=== PATIENT | female | born 1970 | race Caucasian/White ===

== ENCOUNTER → 2020-10-12 14:45 | Outpatient (CLI) | payer OTHER, SELFPAY ==
--- NOTE | ~2020-10-12 | MM_ITS ---
EXAMINATION: MM screening breezy BI w magda HISTORY: Screening mammogram TECHNIQUE: Craniocaudal and mediolateral oblique 3-D tomosynthesis images were obtained and synthetic 2-D images were generated. CAD analysis was submitted and interpreted. COMPARISON: 09/22/2018 bilateral digital screening mammogram BREAST PARENCHYMAL COMPOSITION: The breasts are heterogeneously dense, which may obscure small masses . FINDINGS: There is no evidence of suspicious mass, calcification, or architectural distortion to sugg est malignancy in either breast. There has been no suspicious interval change. IMPRESSION: 1. No mammographic evidence of malignancy. 2. Recommend routine screening mammography in one year. BI-RADS Category 1: Negative Reviewed, dictated and finalized at location A.
== END ==
PROVIDERS: PCP Internal Medicine; Visit Provider Student in an Organized Health Care Education/Training Program
DX: Z12.31 Encounter for screening mammogram for malignant neoplasm of breast (principal)
CPT/HCPCS: 77063; 77067

== ENCOUNTER → 2021-12-18 11:30 | Outpatient (CLI) | payer OTHER, SELFPAY ==
--- NOTE | ~2021-12-18 | MM_ITS ---
EXAMINATION: MM screening breezy BI w magda HISTORY: Screening TECHNIQUE: Craniocaudal and mediolateral oblique 3-D tomosynthesis images were obtained and synthetic 2-D images were generated. CAD analysis was submitted and interpreted. COMPARISON: Comparison to multiple prior studies sequentially, with oldest reviewed study dated 11/2018. BREAST PARENCHYMAL COMPOSITION: The breasts are heterogeneously dense, which may obscure small masses . FINDINGS: There is no evidence of suspicious mass, calcification, or architectural distortion to sugg est malignancy in either breast. There has been no suspicious interval change. IMPRESSION: 1. No mammographic evidence of malignancy. 2. Recommend routine screening mammography in one year. BI-RADS Category 1: Negative Reviewed, dictated and finalized at location A.
== END ==
PROVIDERS: PCP Internal Medicine; Visit Provider Student in an Organized Health Care Education/Training Program
DX: Z12.31 Encounter for screening mammogram for malignant neoplasm of breast (principal)
CPT/HCPCS: 77063; 77067

== ENCOUNTER 2022-03-05 15:03 | Outpatient (CLI) | payer OTHER, SELFPAY ==
--- NOTE | ~2022-03-05 | US_ITS ---
EXAMINATION: US pelvic complete w TV DATE: 03/05/2022 16:59 INDICATION: Abnormal uterine and vaginal bleeding, unspecified. TECHNIQUE: Multiple transabdominal and transvaginal sonographic images of the pelvis were obtained. COMPARISON: None. FINDINGS: TRANSABDOMINAL ULTRASOUND: The uterus measures 8.4 x 6.3 x 5.5 cm. There is no free fluid in the pelvis. TRANSVAGINAL ULTRASOUND: The endometrial complex measures 4 mm in thickness. There are nabothian cysts in the cervix. The righ t ovary measures 2.7 x 1.6 x 1.3 cm. The left ovary measures 2.6 x 1.6 x 1.9 cm. There is normal vasc ular flow in the ovaries. IMPRESSION: 1. Normal pelvis. Reviewed, dictated and finalized at location B. IMPRESSION: 1. Normal pelvis.
== END 2022-03-05 15:04 | disposition home or self-care (01) ==
LOC: ANHIMG 15:05
PROVIDERS: PCP Internal Medicine; Visit Provider Student in an Organized Health Care Education/Training Program
DX: N93.9 Abnormal uterine and vaginal bleeding, unspecified (principal)
CPT/HCPCS: 76830; 76856

== ENCOUNTER 2022-05-03 00:31 | Day surgery (SDC) | payer OTHER, SELFPAY ==
[2022-04-22 13:40] VITALS: BMI 33.6
--- NOTE | 2022-04-22 13:57 | PC.NURSE ---
Report to the Outpatient Waiting Room, entrance under the green pavilion located off [facility], at 0930 on 05-03-22. Planned Procedure Time: 1130. Time changes happen often and if your time is changed the preop area will call you the afternoon before. - You and your visitor will be asked to self-screen and do not enter if you have any COVID symptoms. - Only one visitor is requested with a max of two and NO children visitors are allowed at this time. - The patient visitor may be requested to leave or wait in car when not with patient due to distancing restrictions. - A mask is optional within the hospital. Patients may have clear liquids (water, carbonated beverages, clear teas, apple juice) until 3 hours prior to surgery with a maximum of 20 ounces. 0830 - No food from midnight until time of surgery - Infants may have breast milk until 4 hours before surgery, infant formula 6 hours prior to surgery. - Children will be allowed to drink immediately following surgery. If applicable, please bring a bottle or sippy cup to assist with drinking. Juice, water, soda, and popsicles are readily available. For infants on formula, please bring formula the day of surgery. Pacifiers are allowed. Take the following medications with a SIP of water the morning of surgery: None Medications to discontinue per physician: N/A Please no make-up, nail frisian, hairspray, perfume, deodorant, or body powder the day of surgery. No jewelry (including any body piercings) or valuables the day of surgery, leave them at home. Please take a shower or bath the night before, or the morning of, surgery with an antibacterial soap. Wear comfortable, loose fitting clothing. Children are encouraged to wear pajamas. - Jewelry must be removed prior to entering the operating room. Rings and piercings that are not removed may be cut off. - The hospital will not accept responsibility for valuables. - Please leave all valuables, including medications, at home the day of surgery. If you are going home after surgery, a licensed dedicated regional driver must drive you home. - NO public transportation without another adult if you receive anesthesia. - We recommend that an adult stay with you for 24 hours following discharge. - We also recommend that you do not drive, make important decision, drink alcoholic beverages, or take any drugs that were not prescribed by your health care provider for at least 24 hours after your discharge time. For Pediatric surgeries, we recommend two adults accompany the child home. Follow any additional instructions given to you from your surgeon. If you or anyone in your household have experienced Covid symptoms in the past week, please notify your surgeon or the nurse liaison at the phone number below for possible testing. Telephone instructions given to Butch Collazo and asked if any additional questions and then verbalized understanding. Patient advised to call surgeon office or pre surgery nurse liaison [phone] if any additional questions.
--- NOTE | 2022-05-02 14:20 | PM.IMHP ---
H&P: HPI History of Present Illness Date/Time: 05/02/22 14:20 Chief Complaint: Menorrhagia Narrative: Patient is a 52 year old perimenopausal woman who presented to gynecology office with complaints of menorrhagia.?Patient states that menstrual cycles have become significantly heavier over time. Patient denies pelvic pain. She has tried progesterone only pills in the past as well as attempted IUD insertion, however, experienced expulsion. After lengthy discussion, patient declines hormonal regulation and would like to proceed with an endometrial ablation as next step in management. In general, patient doing well today without complaints. Review of Systems Review of Systems: All systems reviewed & are unremarkable except as noted in HPI and below Constitutional: Constitutional: Reports as per HPI and Reports no additional constitutional complaints Eyes: Eyes: Reports as per HPI and Reports no additional eye complaints ENT: Reports system reviewed and no additional complaints, except as documented and Reports as per HPI Cardiovascular: Cardiovascular: Reports as per HPI and Reports no additional cardiovascular complaints Respiratory: Respiratory: Reports as per HPI and Reports no additional respiratory complaints Gastrointestinal: Gastrointestinal: Reports as per HPI and Reports no additional gastrointestinal complaints Genitourinary: Genitourinary: Reports no additional female genitourinary complaints and Reports as per HPI Musculoskeletal: Musculoskeletal: Reports no additional musculoskeletal complaints and Reports as per HPI Integumentary/Breasts: Skin/Breast: Reports system reviewed and no additional complaints, except as docu and Reports as per HPI Neurologic: Reports system reviewed and no additional complaints, except as documented and Reports as per HPI Psychiatric: Psychiatric: Reports no additional psychiatric complaints and Reports as per HPI Endocrine: Endocrine: Reports no additional endocrine complaints and Reports as per HPI Hematologic/Lymphatic: Hematologic/Lymphatic: Reports no additional hematologic/lymphatic complaints and Reports as per HPI Allergic/Immunologic: Allergic/Immunologic: Reports no additional allergic/immunologic complaints and Reports as per HPI PMFSH Past Medical History Medical History Acute vulvitis Body mass index [BMI]40.0-44.9, adult (03/04/17) Diabetes Encounter for gynecological examination (general) (routine) with abnormal findings Encounter for screening for malignant neoplasm of cervix Heartburn High blood pressure determined by examination High cholesterol Numbness Painful joint Screening mammogram, encounter for Unspecified hemorrhoids Weakness Family History Family History Father Diabetes mellitus Family history of elevated blood lipids Mother Family history of elevated blood lipids Family history of chronic obstructive pulmonary disease, Onset Age: 72 Family history of malignant neoplasm of urinary bladder Sibling Family history of malignant neoplasm of esophagus, Onset Age: 53 Social History Social History Smoking status: Never smoker Second hand tobacco smoke exposure: No Alcohol intake: never Substance use: never Substance use type: does not use Spiritual care concerns: No Meds Home Medications and Allergies Home Medications Medication Instructions Recorded Confirmed Type No Home Medications 04/22/22 04/22/22 History Allergies Allergy/AdvReac Type Severity Reaction Status Date / Time No Known Allergies Allergy Verified 04/22/22 13:38 Exam Const: General: cooperative, healthy appearing and comfortable HENMT: Head: normal to inspection Ears: hearing grossly normal bilaterally Eyes: General: appearance normal, both eyes and all related struct
[2022-05-03] MEDS: ACETAMINOPHEN 500 MG TABLET 1000 MG PO (09:50)
[2022-05-03] MEDS: LACTATED RINGERS 1,000 ML 30 ML IV CONT ×2 (09:50→11:38)
[2022-05-03 10:07] VITALS: BP 120/63; PULSE 77; RESP 18; TEMP 36.6; O2SAT 99
--- NOTE | 2022-05-03 10:12 | P.PNAN_ITS ---
Anes - Initial Pre Proc Eval Procedure: Operation Date: 05/03/22 11:30 Proposed Procedures p Hysteroscopy Dilation and Curettage Endometrial Ablation with Possible Myosure - Mirtha Alvarado MD Date/Time: 05/03/22 10:12 Surgeon: Mirtha Alvarado MD Pre Op Diagnosis: vaginal bleeding, menorrhagia Patient Data Age: 52 Gender: F Height: 1.6 m Weight: 88.05 kg Last Vital Signs Temp 97.8 F 05/03/22 10:07 Pulse 77 05/03/22 10:07 Resp 18 05/03/22 10:07 BP 120/63 05/03/22 10:07 Pulse Ox 99 05/03/22 10:07 O2 Del Method Room Air 05/03/22 10:07 Allergies Allergy/AdvReac Type Severity Reaction Status Date / Time No Known Allergies Allergy Verified 05/03/22 10:03 Home Medications Medication Instructions Recorded Confirmed Type No Home Medications 04/22/22 04/22/22 History Patient hx anesthesia problems: none Family hx anesthesia problems: none Results Review: All pre-operative results and documents have been reviewed as part of the pre- operative evaluation. [facility] Past Medical History Medical History Acute vulvitis Body mass index [BMI]40.0-44.9, adult (03/04/17) Diabetes Encounter for gynecological examination (general) (routine) with abnormal fi ndings Encounter for screening for malignant neoplasm of cervix Heartburn High blood pressure determined by examination High cholesterol Numbness Painful joint Screening mammogram, encounter for Unspecified hemorrhoids Weakness Family History Family History Father Diabetes mellitus Family history of elevated blood lipids Mother Family history of elevated blood lipids Family history of chronic obstructive pulmonary disease, Onset Age: 72 Family history of malignant neoplasm of urinary bladder Sibling Family history of malignant neoplasm of esophagus, Onset Age: 53 Social History Social History Smoking status: Never smoker Second hand tobacco smoke exposure: No Alcohol intake: never Substance use: never Substance use type: does not use Living arrangements: with family Spiritual care concerns: No Anes - Eval Final PreProcedure Day of Procedure 05/03/22 10:12 Patient weight: obese Heart: regular rate and rhythm Lungs: clear to auscultation Airway: Mallampati scale class II Neurological: alert and oriented Last oral intake: >/= 8 hours ASA classification: III Emergent: no Anesthetic plan: proceed Anesthesia type and monitoring: general GIVS and standard monitoring Results Review: All pre-operative results and documents have been reviewed as part of the pre-operative evaluation. Informed Consent: The patient's anesthetic plan and its attendant risks and benefits were discussed with the patient/family/POA. Questions were solicited and answers provided to the satisfaction of the patient/family/POA.
--- NOTE | 2022-05-03 10:32 | WPDHPUPDATE1 ---
History and Physical Update Update Date/Time: 05/03/22 10:32 History and Physical has been reviewed, including an updated exam of the patient. There are NO changes in the patient's condition. Risks, benefits, and alternatives have been discussed and questions answered. Patient agrees to proceed with procedure.
[2022-05-03] MEDS: LIDOCAINE HCL 1% PF 30 ML VIAL INFILTRATE (11:20)
--- NOTE | 2022-05-03 11:36 | P.OP_ITS ---
Procedure Note - Detailed Date of Procedure 05/03/22 Pre-op Diagnosis Abnormal uterine bleeding, menorrhagia Post-op Diagnosis Same Procedure Performed Hysteroscopy, dilation and curettage, endometrial ablation with Shayla Surgeon Mirtha Alvarado MD Anesthesia MAC Findings Normal appearing endometrial cavity, bilateral tubal ostia seen Description of Procedure The patient was taken to the operating room where she self-transferred to the operating room table. She was placed in dorsal supine position. Anesthesia was administered and found to be adequate. The patient was repositioned in dorsal lithotomy position with the use of Dm stirrups. She was prepped and draped in usual sterile fashion. A red rubber catheter was used to drain the bladder of 50 cc of clear urine. A bivalve speculum was inserted into the vagina. The cervix was well visualized. The anterior lip of the cervix was grasped with a single- tooth tenaculum. A paracervical block was performed with 1% plain lidocaine. 5 cc of lidocaine was administered on either side for a total of 10 cc. The cervix was serially dilated to accommodate a hysteroscope. The hysteroscope was introduced into the endometrial cavity. A general survey was performed.? Endometrial cavity was well visualized and appeared within normal limits. Bilateral tubal ostia were visualized. A few pictures were taken. The hysteroscope was removed. A medium-size rigid curette was used to perform a curettage. All quadrants of the endometrial cavity were explored. A minimal amount of tissue was obtained and prepared to be sent to pathology for analysis.?The Shayla endometrial ablation device was then opened on the sterile field. The appropriate settings were input on the hand-held device and the array was introduced into the endometrial cavity and deployed. The cervical balloon was insufflated. An error code appeared on the [employer] console indicating a handpiece defect error. The cervical balloon was desufflated, array was collapsed, and the hand-held device was removed. A new handpiece was opened. Similarly, the appropriate settings were input on the hand-held device and the array was introduced into the endometrial cavity and deployed. The cervical balloon was insufflated. There was no error code. An integrity check was completed and passed by the Shayla console. After the integrity check was passed successfully, the ablation procedure started automatically and ran for the preset time of 120 seconds. After completion of the ablation procedure, the array was collapsed and the cervical balloon was desufflated. The device was removed.? The tenaculum was removed from the anterior lip of the cervix. No bleeding was noted. The vagina was cleansed and dried and the speculum was removed. The patient was cleansed and dried and taken out of the dorsal lithotomy position. She was awakened from anesthesia without difficulty and transferred to the recovery room in stable condition.? The patient tolerated the procedure well.? All sponge, lap, and instrument counts were correct at the end of the procedure. Estimated Blood Loss 2 IV Fluids 200 Urine Output 50 Drains No Packing No Pathology Yes (endometrial curettings) Complications No immediate complications (however, error code on Shayla device required repl acement of handpiece prior to ablation during procedure) Condition Stable Disposition Same day [facility] Billing Surgery - Charge Forward: Surgery Billing
[2022-05-03 11:40] VITALS: BP 130/65; PULSE 79; RESP 14; O2SAT 97
[2022-05-03 12:10] VITALS: BP 139/72; PULSE 64; RESP 12
== END 2022-05-03 12:31 | disposition home or self-care (01) ==
PROVIDERS: PCP Internal Medicine; Visit Provider Student in an Organized Health Care Education/Training Program
PROC: 0U5B8ZZ Destruction of Endometrium, Via Natural or Artificial Opening Endoscopic (ICD-10-PCS; CPT 58563; principal; 2022-05-03 11:30)
DX: N92.0 Excessive and frequent menstruation with regular cycle (principal); E66.9 Obesity, unspecified; Z68.34 Body mass index [BMI] 34.0-34.9, adult
CPT/HCPCS: 58563; 88305; A9270; J2250; J2405; J2704; J3010; J7030; J7120

== ENCOUNTER 2022-06-11 10:54 | Day surgery (SDC) | payer OTHER, SELFPAY ==
[2022-04-08 08:18] VITALS: BMI 34.8
[2022-05-29 13:23] VITALS: BMI 33.3
--- NOTE | 2022-06-11 07:52 | P.PNAN_ITS ---
Anes - Initial Pre Proc Eval Procedure: Operation Date: 06/11/22 13:30 Proposed Procedures p Screening Colonoscopy - Jose Angel De La Paz MD Date/Time: 06/11/22 07:52 Surgeon: Jose Angel De La Paz MD Pre Op Diagnosis: Neoplasm Screening Patient Data Age: 52 Gender: F Height: 1.6 m Weight: 85.5 kg Allergies Allergy/AdvReac Type Severity Reaction Status Date / Time No Known Allergies Allergy Verified 06/11/22 12:28 Home Medications Medication Instructions Recorded Confirmed Type No Home Medications 04/22/22 06/11/22 History Patient hx anesthesia problems: none Family hx anesthesia problems: none Results Review: All pre-operative results and documents have been reviewed as part of the pre- operative evaluation. [facility] Past Medical History Medical History (Updated 06/11/22 @ 12:57 by Jose Angel De La Paz MD) Acute vulvitis Body mass index [BMI]40.0-44.9, adult (03/04/17) Colon cancer screening Diabetes Encounter for gynecological examination (general) (routine) with abnormal findings Encounter for screening for malignant neoplasm of cervix Heartburn High blood pressure determined by examination High cholesterol Numbness Painful joint Screening mammogram, encounter for Unspecified hemorrhoids Weakness Family History Family History Father Diabetes mellitus Family history of elevated blood lipids Mother Family history of elevated blood lipids Family history of chronic obstructive pulmonary disease, Onset Age: 72 Family history of malignant neoplasm of urinary bladder Sibling Family history of malignant neoplasm of esophagus, Onset Age: 53 Social History Social History Smoking status: Never smoker Second hand tobacco smoke exposure: No Alcohol intake: never Substance use: never Substance use type: does not use Living arrangements: with family Spiritual care concerns: No Anes - Eval Final PreProcedure Day of Procedure 06/11/22 07:52 Patient weight: obese Heart: regular rate and rhythm Lungs: clear to auscultation Airway: Mallampati scale class II Neurological: alert and oriented Last oral intake: >/= 8 hours ASA classification: II Emergent: no Anesthetic plan: proceed Anesthesia type and monitoring: general GIVS and standard monitoring Results Review: All pre-operative results and documents have been reviewed as part of the pre- operative evaluation. Informed Consent: The patient's anesthetic plan and its attendant risks and benefits were discussed with the patient/family/POA. Questions were solicited and answers provided to the satisfaction of the patient/family/POA.
[2022-06-11 12:05] VITALS: BP 124/73; PULSE 76; RESP 20; TEMP 36.7; O2SAT 99
[2022-06-11] MEDS: LACTATED RINGERS 1,000 ML 150 ML IV CONT (12:35)
--- NOTE | 2022-06-11 12:56 | PM.HPGS ---
History of Present Illness History of Present Illness Consent: Risks, benefits, and alternatives have been discussed and questions answered. Patient agrees to proceed with procedure. Chief complaint: Neoplasm Screening Narrative: Dior Collazo is a 52 year old female here for first screening colonoscopy Review of Systems Constitutional: Constitutional: Denies headache(s) and Denies weakness Eyes: Eyes: Denies blurry vision ENT: Reports Normal hearing present, Denies headache(s) and Denies neck pain Cardiovascular: Cardiovascular: Denies chest pain and Denies dyspnea Respiratory: Respiratory: Denies dyspnea Gastrointestinal: Gastrointestinal: Reports no additional gastrointestinal complaints Genitourinary: Genitourinary: Denies dysuria Musculoskeletal: Musculoskeletal: Denies neck pain Integumentary/Breasts: Skin/Breast: Denies dry skin Neurologic: Reports Normal hearing present, Denies headache(s) and Denies weakness Psychiatric: Psychiatric: Denies anxiety Endocrine: Endocrine: Denies change in body appearance Hematologic/Lymphatic: Hematologic/Lymphatic: Denies easy bleeding Allergic/Immunologic: Allergic/Immunologic: Denies urticaria PMFSH Past Medical History Medical History (Updated 06/11/22 @ 12:57 by Jose Angel De La Paz MD) Acute vulvitis Body mass index [BMI]40.0-44.9, adult (03/04/17) Colon cancer screening Diabetes Encounter for gynecological examination (general) (routine) with abnormal findings Encounter for screening for malignant neoplasm of cervix Heartburn High blood pressure determined by examination High cholesterol Numbness Painful joint Screening mammogram, encounter for Unspecified hemorrhoids Weakness Family History Family History Father Diabetes mellitus Family history of elevated blood lipids Mother Family history of elevated blood lipids Family history of chronic obstructive pulmonary disease, Onset Age: 72 Family history of malignant neoplasm of urinary bladder Sibling Family history of malignant neoplasm of esophagus, Onset Age: 53 Social History Social History Smoking status: Never smoker Second hand tobacco smoke exposure: No Alcohol intake: never Substance use: never Substance use type: does not use Living arrangements: with family Spiritual care concerns: No Meds Home Medications and Allergies Home Medications Medication Instructions Recorded Confirmed Type No Home Medications 04/22/22 06/11/22 History Allergies Allergy/AdvReac Type Severity Reaction Status Date / Time No Known Allergies Allergy Verified 06/11/22 12:28 Vital Signs Vital Signs - 24 hr 06/11/22 12:05 Temperature 98.1 F Pulse Rate 76 Respiratory Rate 20 Blood Pressure 124/73 Pulse Oximetry 99 Oxygen Delivery Room Air Exam Const: General: comfortable and no acute distress HENMT: Face/Nose/Sinus: Normal nares present Eyes: General: appearance normal, both eyes and all related structures Neck: Neck: no JVD Resp: Auscultation: clear to auscultation bilaterally Cardio: Rate: regular rate Rhythm: regular rhythm GI: Inspection: non-distended GI Palp: Yes Soft to palpation Skin: General skin exam: normal color Neuro: General: gait normal Speech: normal speech Extrem: General: normal to inspection Psych: Mental Status: mental status grossly normal Assessment and Plan Assessment and plan (1) Colon cancer screening: Code(s): Z12.11 - Encounter for screening for malignant neoplasm of colon Status: Acute Assessment and Plan: colonoscopy
[2022-06-11 13:22] VITALS: BP 117/68; PULSE 76; RESP 16; O2SAT 100
[2022-06-11 13:32] VITALS: BP 123/70; PULSE 74; RESP 16; O2SAT 100
[2022-06-11 13:42] VITALS: BP 124/76; PULSE 70; RESP 20; O2SAT 100
--- NOTE | 2022-06-11 14:24 | WPDANESPN ---
Anes - Prog Note Post-Op Date/Time: 06/11/22 14:24 Cardiovascular status: normal Respiratory status: normal Airway patency: baseline Mental status: baseline Post-Op hydration status: normal Vital Signs: Last Vital Signs Temp 36.7 C 06/11/22 12:05 Pulse 70 06/11/22 13:42 Resp 20 06/11/22 13:42 BP 124/76 06/11/22 13:42 Pulse Ox 100 06/11/22 13:42 O2 Del Method Room Air 06/11/22 13:42 Pain Score (VAS): 0 I/O: Intake & Output 06/10/22 06/11/22 06/11/22 23:59 07:59 15:59 Intake Total 300 Balance 300 Post-procedural complaints: none Patient Feedback: Patient satisfied with anesthetic care. Other Findings: Patient vital signs back to baseline. Patient denies nausea and vomiting. Patient's pain under control. Patient OK for discharge.
== END 2022-06-11 14:15 | disposition home or self-care (01) ==
PROVIDERS: PCP Internal Medicine; Visit Provider Internal Medicine Gastroenterology
PROC: 0DJD8ZZ Inspection of Lower Intestinal Tract, Via Natural or Artificial Opening Endoscopic (ICD-10-PCS; CPT 45378; principal; 2022-06-11 13:30)
DX: Z12.11 Encounter for screening for malignant neoplasm of colon (principal)
CPT/HCPCS: 45378

== ENCOUNTER 2022-10-03 10:03 | Outpatient (CLI) | payer OTHER, SELFPAY ==
--- NOTE | 2022-10-03 11:00 | NEURO_ITS ---
Impression: # Complains of numbness of hands. # Left moderate and right mild Carpal Tunnel Syndrome. # No ulnar neuropathy. # Normal needle/EMG exam. Nerve Conduction Studies Anti Sensory Summary Table Stim Site NR Peak (ms) P-T Amp (?V) Site1 Site2 Delta-P (ms) Dist (cm) Kalia (m/s) Left Median Anti Sensory (2-3nd Digit) Wrist 4.5 15.7 Wrist 2-3nd Digit 4.5 14.0 31 Wrist 4.7 21.4 Wrist 2-3nd Digit 4.5 14.0 31 Right Median Anti Sensory (2-3nd Digit) Wrist 4.8 19.0 Wrist 2-3nd Digit 4.8 14.0 29 Wrist 4.9 22.7 Wrist 2-3nd Digit 4.8 14.0 29 Left Radial Anti Sensory (Base 1st Digit) Wrist 1.6 21.0 Wrist Base 1st Digit 1.6 0.0 Right Radial Anti Sensory (Base 1st Digit) Wrist 1.8 35.8 Wrist Base 1st Digit 1.8 0.0 Left Ulnar Anti Sensory (5th Digit) Wrist 1.8 53.6 Wrist 5th Digit 1.8 14.0 78 Right Ulnar Anti Sensory (5th Digit) Wrist 2.1 76.7 Wrist 5th Digit 2.1 14.0 67 Motor Summary Table Stim Site NR Onset (ms) O-P Amp (mV) Site1 Site2 Delta-0 (ms) Dist (cm) Kalia (m/s) Left Median Motor (Abd Poll Brev) Wrist 4.4 3.3 Elbow Wrist 4.4 26.0 59 Elbow 8.8 2.7 Right Median Motor (Abd Poll Brev) Wrist 3.4 6.1 Elbow Wrist 4.9 30.0 61 Elbow 8.3 5.7 Left Ulnar Motor (Abd Dig Minimi) Wrist 2.1 7.9 A Elbow Wrist 4.9 28.0 57 A Elbow 7.0 4.9 Right Ulnar Motor (Abd Dig Minimi) Wrist 2.3 8.1 A Elbow Wrist 4.4 28.0 64 A Elbow 6.7 8.1 F Wave Studies NR F-Lat (ms) L-R F-Lat (ms) Left Median (Mrkrs) (Abd Poll Brev) 26.98 1.89 Right Median (Mrkrs) (Abd Poll Brev) 25.09 1.89 Left Ulnar (Mrkrs) (Abd Dig Min) 26.27 0.51 Right Ulnar (Mrkrs) (Abd Dig Min) 25.76 0.51 EMG Side Muscle Nerve Root Ins Act Fibs Amp Dur Recrt Comment Right 1stDorInt Ulnar C8-T1 Nml Nml Nml Nml Nml Right Ext Indicis Radial (Post Int) C7-8 Nml Nml Nml Nml Nml Right Ext Digitorum Radial (Post Int) C7-8 Nml Nml Nml Nml Nml Right BrachioRad Radial C5-6 Nml Nml Nml Nml Nml Right PronatorTeres Median C6-7 Nml Nml Nml Nml Nml Right Abd Poll Brev Median C8-T1 Nml Nml Nml Nml Nml Left 1stDorInt Ulnar C8-T1 Nml Nml Nml Nml Nml Left Ext Indicis Radial (Post Int) C7-8 Nml Nml Nml Nml Nml Left Ext Digitorum Radial (Post Int) C7-8 Nml Nml Nml Nml Nml Left BrachioRad Radial C5-6 Nml Nml Nml Nml Nml Left PronatorTeres Median C6-7 Nml Nml Nml Nml Nml Left Abd Poll Brev Median C8-T1 Nml Nml Nml Nml Nml Right ABD Dig Min Ulnar C8-T1 Nml Nml Nml Nml Nml Left ABD Dig Min Ulnar C8-T1 Nml Nml Nml Nml Nml MTDD
== END 2022-10-03 10:04 | disposition home or self-care (01) ==
LOC: ANHNEURO 10:04
PROVIDERS: PCP Family Medicine; Visit Provider Plastic Surgery
DX: R20.2 Paresthesia of skin (principal); G56.03 Carpal tunnel syndrome, bilateral upper limbs
CPT/HCPCS: 95886; 95911

== ENCOUNTER → 2022-11-21 11:26 | Outpatient (CLI) | payer OTHER, SELFPAY ==
--- NOTE | ~2022-11-21 | US_ITS ---
Thyroid ultrasound. Clinical History: Nontoxic goiter Findings: Real-time sonography of the thyroid gland was performed. The right lobe measures 5.3 x 1.4 x 1.8 cm. The left lobe measures 4.4 x 1.2 x 1.4 cm. The isthmus is 2 mm in AP diameter. Parenchyma is homogeneous. No thyroid nodule identified. Impression: No significant abnormality seen. Reviewed, dictated and finalized at location . Impression: No significant abnormality seen.
== END ==
PROVIDERS: PCP Registered Nurse; Visit Provider Registered Nurse
DX: E04.9 Nontoxic goiter, unspecified (principal)
CPT/HCPCS: 76536

== ENCOUNTER 2022-12-10 07:39 | Day surgery (SDC) | payer OTHER, SELFPAY ==
[2022-10-15 10:50] VITALS: BMI 31.9
[2022-11-26 10:22] VITALS: BMI 38.2
[2022-12-10 08:06] VITALS: BP 134/85; PULSE 82; RESP 16; TEMP 36; O2SAT 99; BMI 37.6
--- NOTE | 2022-12-10 08:17 | WPDANESEPPF ---
Anes - Initial Pre Proc Eval Procedure: Operation Date: 12/10/22 09:45 Proposed Procedures p Bilateral Open Carpal Tunnel Release - Isiah Huerta MD s Trigger Thumb Injection-Left - Isiah Huerta MD Date/Time: 12/10/22 08:17 Surgeon: Isiah Huerta MD Pre Op Diagnosis: Biateral Carpal Tunnel Syndrome, LT Trigger Thumb Patient Data Age: 52 Gender: F Height: 1.6 m Weight: 96.4 kg Last Vital Signs Temp 36.0 C L 12/10/22 08:06 Pulse 82 12/10/22 08:06 Resp 16 12/10/22 08:06 BP 134/85 12/10/22 08:06 Pulse Ox 99 12/10/22 08:06 O2 Del Method Room Air 12/10/22 08:06 Allergies Allergy/AdvReac Type Severity Reaction Status Date / Time No Known Allergies Allergy Verified 12/10/22 07:55 Home Medications Medication Instructions Recorded Confirmed Type No Home Medications 04/22/22 12/10/22 History Patient hx anesthesia problems: none Family hx anesthesia problems: none Results Review: All pre-operative results and documents have been reviewed as part of the pre-operative evaluation. [facility] Past Medical History Medical History Acute vulvitis Body mass index [BMI]40.0-44.9, adult (03/04/17) Colon cancer screening Diabetes Encounter for gynecological examination (general) (routine) with abnormal findings Encounter for screening for malignant neoplasm of cervix Heartburn High blood pressure determined by examination High cholesterol Numbness Painful joint Screening mammogram, encounter for Unspecified hemorrhoids Weakness Family History Family History Father Diabetes mellitus Family history of elevated blood lipids Mother Family history of elevated blood lipids Family history of chronic obstructive pulmonary disease, Onset Age: 72 Family history of malignant neoplasm of urinary bladder Sibling Family history of malignant neoplasm of esophagus, Onset Age: 53 Social History Social History Smoking status: Never smoker Second hand tobacco smoke exposure: No Alcohol intake: never Substance use: never Substance use type: does not use Lack of Transportation: No Lack of Food: Never True Current Housing: I Have Housing Concerned About Future Housing: No Difficulty Paying Gas/Electric Bills: No Difficulty Paying for Meds: No Currently Unemployed: No Education: Bachelor's Degree Living arrangements: with family Occupation/Education: occupation Gender identity (if verbalized by the patient): Female Sexual Orientation (if Verbalized by the Patient): Straight or Heterosexual Spiritual care concerns: No Anes - Eval Final PreProcedure Day of Procedure 12/10/22 08:17 Patient weight: obese Heart: regular rate and rhythm Lungs: clear to auscultation Airway: Mallampati scale class II Neurological: alert and oriented Last oral intake: >/= 8 hours ASA classification: II Emergent: no Anesthetic plan: proceed Anesthesia type and monitoring: general GIVS and standard monitoring Results Review: All pre-operative results and documents have been reviewed as part of the pre-operative evaluation. Informed Consent: The patient's anesthetic plan and its attendant risks and benefits were discussed with the patient/family/POA. Questions were solicited and answers provided to the satisfaction of the patient/family/POA.
[2022-12-10] MEDS: LACTATED RINGERS 1,000 ML 30 ML IV CONT (08:25)
--- NOTE | 2022-12-10 08:33 | P.HP_ITS ---
H&P: HPI History of Present Illness Date/Time: 12/10/22 08:33 [facility] Past Medical History Medical History Acute vulvitis Body mass index [BMI]40.0-44.9, adult (03/04/17) Colon cancer screening Diabetes Encounter for gynecological examination (general) (routine) with abnormal findings Encounter for screening for malignant neoplasm of cervix Heartburn High blood pressure determined by examination High cholesterol Numbness Painful joint Screening mammogram, encounter for Unspecified hemorrhoids Weakness Family History Family History Father Diabetes mellitus Family history of elevated blood lipids Mother Family history of elevated blood lipids Family history of chronic obstructive pulmonary disease, Onset Age: 72 Family history of malignant neoplasm of urinary bladder Sibling Family history of malignant neoplasm of esophagus, Onset Age: 53 Social History Social History Smoking status: Never smoker Second hand tobacco smoke exposure: No Alcohol intake: never Substance use: never Substance use type: does not use Lack of Transportation: No Lack of Food: Never True Current Housing: I Have Housing Concerned About Future Housing: No Difficulty Paying Gas/Electric Bills: No Difficulty Paying for Meds: No Currently Unemployed: No Education: Bachelor's Degree Living arrangements: with family Occupation/Education: occupation Gender identity (if verbalized by the patient): Female Sexual Orientation (if Verbalized by the Patient): Straight or Heterosexual Spiritual care concerns: No Meds Home Medications and Allergies Home Medications Medication Instructions Recorded Confirmed Type No Home Medications 04/22/22 12/10/22 History Allergies Allergy/AdvReac Type Severity Reaction Status Date / Time No Known Allergies Allergy Verified 12/10/22 07:55 Vital Signs Vital Signs - 24 hr 12/10/22 08:06 Temperature 96.8 F L Pulse Rate 82 Respiratory Rate 16 Blood Pressure 134/85 Pulse Oximetry 99 Oxygen Delivery Room Air
--- NOTE | 2022-12-10 08:34 | WPDHPUPDATE1 ---
History and Physical Update Update Date/Time: 12/10/22 08:34 History and Physical has been reviewed, including an updated exam of the patient. There are NO changes in the patient's condition. Risks, benefits, and alternatives have been discussed and questions answered. Patient agrees to proceed with procedure.
[2022-12-10] MEDS: LIDO 1%/EPINEPHRINE 1:100,000 50 ML VIAL 12 ML INFILTRATE (10:17)
[2022-12-10 10:19] VITALS: BP 142/65; PULSE 84; RESP 18; O2SAT 93
--- NOTE | 2022-12-10 10:25 | W.PM.PROC2 ---
Procedure Note - Detailed Date of Procedure 12/10/22 Pre-op Diagnosis Biateral Carpal Tunnel Syndrome, LT Trigger Thumb Post-op Diagnosis Same Procedure Performed Bilateral open carpal tunnel release. Injection of 6 mg betamethasone to the left 1st A1 mauricio. Surgeon Isiah Huerta MD Anesthesia MAC Description of Procedure The patient was greeted in the holding area and marked both carpal tunnels for surgery. Also the left 1st A1 mauricio for injection. She was then taken to the operating room where she was placed supine on the operating table. She was given IV sedation and both upper extremities were prepped and draped in the usual fashion. She had a tourniquet applied on the right forearm below the antecubital IV. She had an arm tourniquet on the left. The 2 sites were anesthetized with 1% with lidocaine with epinephrine. Dwell time on the right was approximately 18 minute. The surgery was begun on the left. The extremity was exsanguinated and the tourniquet inflated to 250 mmHg. The incision was made as marked. The palmar aponeurosis and transverse retinaculum were incised with a 15. Blade. Under 3 point retraction the ligament was divided distally and proximally for complete release. No unusual anatomy was noted. The wound was closed with interrupted 5 0 nylon sutures. The 6 mg of betamethasone were injected at the left 1st A1 mauricio . The usual bandages were applied and the tourniquet was released. On the right side no tourniquet was utilized the incision was made in the palm and blunt dissection revealed the palmar aponeurosis. Several bleeding sites were cauterized on setting of 20. The incision was made through the palmar aponeurosis and into the carpal canal. Under 3 point retraction transverse retinaculum was divided distally and proximally for complete release. There was no unusual anatomy noted. The wound was closed with interrupted 5 0 nylon suture. The usual bandage was applied. The patient was discharged from the operating room in stable condition. She has a prescription for hydrocodone 5/325 7. And instructions in wound care and follow-up. Estimated Blood Loss 3 Tourniquet Time 7 Drains No Packing No Pathology None sent Complications No immediate complications Condition Stable Disposition Same day
[2022-12-10 10:29] VITALS: BP 149/71; PULSE 80; RESP 18; O2SAT 95
--- NOTE | 2022-12-10 10:31 | WPDANESPN ---
Anes - Prog Note Post-Op Date/Time: 12/10/22 10:31 Cardiovascular status: normal Respiratory status: normal Airway patency: baseline Mental status: baseline Post-Op hydration status: normal Vital Signs: Last Vital Signs Temp 36.0 C L 12/10/22 08:06 Pulse 80 12/10/22 10:29 Resp 18 12/10/22 10:29 BP 149/71 H 12/10/22 10:29 Pulse Ox 95 12/10/22 10:29 O2 Del Method Room Air 12/10/22 10:29 Pain Score (VAS): 0 Patient Feedback: Patient satisfied with anesthetic care.
[2022-12-10 10:45] VITALS: BP 152/73; PULSE 82; RESP 18; O2SAT 95
[2022-12-10 11:00] VITALS: BP 148/69; PULSE 80; RESP 18; O2SAT 96
--- NOTE | 2022-12-10 12:59 | SUR.OPER ---
Betamethasone 30mg/5ML 2ml injected in right thumb per Dr Huerta.
== END 2022-12-10 11:10 | disposition home or self-care (01) ==
PROVIDERS: PCP Nurse Practitioner; Visit Provider Plastic Surgery
PROC: (CPT 64721; principal; 2022-12-10 09:45)
PROC: (CPT 64721; 2022-12-10 09:45)
DX: G56.01 Carpal tunnel syndrome, right upper limb (principal); G56.02 Carpal tunnel syndrome, left upper limb; M65.312 Trigger thumb, left thumb
CPT/HCPCS: 64721; 20550

== ENCOUNTER → 2023-02-05 12:15 | Outpatient (CLI) | payer OTHER, SELFPAY ==
--- NOTE | ~2023-02-05 | MM_ITS ---
EXAMINATION: MM screening breezy BI w magda HISTORY: Screening TECHNIQUE: Craniocaudal and mediolateral oblique 3-D tomosynthesis images were obtained and synthetic 2-D images were generated. CAD analysis was submitted and interpreted. COMPARISON: Comparison to multiple prior studies sequentially, with oldest reviewed study dated 11/2018. BREAST PARENCHYMAL COMPOSITION: The breasts are heterogeneously dense, which may obscure small masses . FINDINGS: There is possible architectural distortion lower outer quadrant of the right breast on MLO view. The left breast is stable without evidence for malignancy. IMPRESSION: 1. Possible architectural distortion lower outer quadrant of the right breast on MLO view. 2. Additional mammographic views and possible breast ultrasound are recommended. BI-RADS Category 0: Incomplete: Needs additional imaging evaluation. Reviewed, dictated and finalized at location A. IMPRESSION: 1. Possible architectural distortion lower outer quadrant of the right breast o n MLO view. 2. Additional mammographic views and possible breast ultrasound are recommended . BI-RADS Category 0: Incomplete: Needs additional imaging evaluation.
== END ==
PROVIDERS: PCP Registered Nurse; Visit Provider Registered Nurse
DX: Z12.31 Encounter for screening mammogram for malignant neoplasm of breast (principal); R92.8 Other abnormal and inconclusive findings on diagnostic imaging of breast
CPT/HCPCS: 77063; 77067

== ENCOUNTER → 2023-02-26 09:40 | Outpatient (CLI) | payer OTHER, SELFPAY ==
--- NOTE | ~2023-02-26 | MMUS_ITS ---
EXAMINATION: MM diagnostic breezy RT w magda, US breast RT complete HISTORY: Possible architectural distortion reported in the lower outer quadrant of the right breast o n screening MLO view of 02/05/2023 TECHNIQUE: Additional 3-D tomosynthesis images of the right breast were performed and synthetic 2-D i mages were generated. CAD analysis was submitted and interpreted. High resolution complete right sunni st ultrasound examination including all 4 quadrants and subareolar area was performed. COMPARISON: 02/05/2023, 12/18/2021, 10/12/2020, 09/22/2018 bilateral screening mammogram examinations bilat eral screening mammogram FINDINGS: MAMMOGRAPHIC FINDINGS: No suspicious mass or architectural distortion is evident on these supplemental views. There are mult iple punctate benign-appearing microcalcifications. No malignant calcification, skin thickening or re traction is detected. ULTRASOUND: 1:00 subareolar area: 1.5 x 3.9 mm cyst 6:00 subareolar area: 3.5 x 6.2 x 4.1 mm cyst 9:00 2 cm from nipple: 3.5 x 5.4 x 5.5 mm multilocular circumscribed cyst 11:00 5 cm from nipple: 2.3 x 1.3 x 2.8 mm cyst There is some dense tissue in the 6:00 subareolar area but this area is relatively dense and stable i n appearance on mammograms dating back to 09/22/2018. IMPRESSION: 1. Benign findings 2. Routine annual mammographic screening is recommended BI-RADS Category 2: Benign finding(s). Reviewed, dictated and finalized at location A. IMPRESSION: 1. Benign findings 2. Routine annual mammographic screening is recommended BI-RADS Category 2: Benign finding(s).
== END ==
PROVIDERS: PCP Registered Nurse; Visit Provider Registered Nurse
DX: R92.8 Other abnormal and inconclusive findings on diagnostic imaging of breast (principal)
CPT/HCPCS: 76641; 77061; 77065; G0279

== ENCOUNTER 2024-02-09 14:57 | Outpatient (CLI) | payer OTHER, SELFPAY ==
--- NOTE | ~2024-02-09 | MM_ITS ---
EXAMINATION: MM screening breezy BI w magda HISTORY: Screening TECHNIQUE: Craniocaudal and mediolateral oblique 3-D tomosynthesis images were obtained and synthetic 2-D images were generated. CAD analysis was submitted and interpreted. COMPARISON: Comparison to multiple prior studies sequentially, with oldest reviewed study dated 11/2018. BREAST PARENCHYMAL COMPOSITION: Dense: The breasts are heterogeneously dense, which may obscure small masses FINDINGS: There is no evidence of suspicious mass, calcification, or architectural distortion to sugg est malignancy in either breast. There has been no suspicious interval change. IMPRESSION: 1. No mammographic evidence of malignancy. 2. Recommend routine screening mammography in one year. BI-RADS Category 1: Negative Reviewed, dictated and finalized at location B.
== END 2024-02-09 14:58 | disposition home or self-care (01) ==
LOC: MICIMG 14:59
PROVIDERS: PCP Obstetrics & Gynecology; Visit Provider Obstetrics & Gynecology
DX: Z12.31 Encounter for screening mammogram for malignant neoplasm of breast (principal)
CPT/HCPCS: 77063; 77067

== ENCOUNTER 2024-07-14 00:34 | Day surgery (SDC) | payer OTHER, SELFPAY ==
--- NOTE | 2024-07-05 10:37 | PC.NURSE ---
Report to the Outpatient Waiting Room, entrance under the green pavilion located off [facility], at time _0945_ on date _07/14/24_. Planned Procedure Time: _1145_.? Time changes happen often and if your time is changed the preop area will call you the afternoon before. - You and your visitor will be asked to self-screen and do not enter if you have any COVID symptoms. Please call surgeon if you need to reschedule. - A mask is optional within the hospital at this time. Patients may have clear liquids (water, carbonated beverages, clear teas, apple juice) until 8 hours prior to surgery with a maximum of 20 ounces. - No food from midnight until time of surgery and no smoking, or chewing tobacco (or any form of nicotine). No chewing gum, candy or mints. - Infants may have breast milk until 4 hours before surgery, infant formula 6 hours prior to surgery. - Children will be allowed to drink immediately following surgery.? If applicable, please bring a bottle or sippy cup to assist with drinking. Juice, water, soda, and popsicles are readily available.? For infants on formula, please bring formula the day of surgery.? Pacifiers are allowed. Take only the following medications with a SIP of water on the morning of surgery: ____VENLAFEXINE DO NOT STOP ANY OF YOUR OTHER PRESCRIPTION MEDICATIONS PRIOR TO SURGERY EXCEPT THE FOLLOWING Hold all vitamins and supplements for 3 days per anesthesiologist. Medications to discontinue per physician NONE Date to take last dose Please no make-up, nail chinese, hairspray, perfume, deodorant, or body powder the day of surgery.? No jewelry (including any body piercings) or valuables the day of surgery, leave them at home.? Please take a shower or bath the night before, or the morning of, surgery with an antibacterial soap.? Wear comfortable, loose fitting clothing.? Children are encouraged to wear pajamas. - Jewelry must be removed prior to entering the operating room.? Rings and piercings that are not removed may be cut off. - The hospital will not accept responsibility for valuables.? - Please leave all valuables, including medications, at home the day of surgery. If you are going home after surgery, a licensed coal tram driver must drive you home.? - NO public transportation without another adult if you receive anesthesia. - We recommend that an adult stay with you for 24 hours following discharge. - We also recommend that you do not drive, make important decision, drink alcoholic beverages, or take any drugs that were not prescribed by your health care provider for at least 24 hours after your discharge time. For Pediatric surgeries, we recommend two adults accompany the child home. Follow any additional instructions given to you from your surgeon. Telephone instructions given to _PATIENT_and asked if any additional questions and then verbalized understanding. Patient advised to call surgeon office or pre surgery nurse liaison [phone] if any additional questions.
[2024-07-05 10:42] VITALS: BMI 38.2
--- OUTSIDE RECORDS SUMMARY | 2024-07-14 00:37 | XMS_ITS | Clinical Summary ---
Author Organization [facility] Address [address] [place] [address] Care Team Providers Care Assistant Librarian Name Role Phone Marc Meredith Primary Care Provider [phone] Source Comments [facility],non-owned Affiliates and Associated Physician Practices is amultiple site organization consisting of ambulatory clinics and hospital sitesin [place], [place], [place] and [place]. This disclosure is being madepursuant to the Care Everywhere program and may not contain all information available regarding this patient. Last updated 18.[facility] Social History Tobacco Use Types Packs/Day Years Used Date Smoking Tobacco: Never Assessed Sex and Gender Information Value Date Recorded Sex Assigned at Not on file Gender Identity Not on file Sexual Orientation Not on file Plan of Treatment Health Maintenance Due Date Last Done Comments COLOGUARD (AGES 45-75) - COL ON CA SCREENING 1971 COLON MONITORING 1971 COLONOSCOPY - COLON CA SCREENING 1971 CT COLONOGRAPHY - COLON CA SCREENING 1971 Colorectal Cancer Screening 1971 FIT - COLON CA SCREENING 1971 FLEX SIG - COLON CA SCREENING 1971 LIPID TESTING 1971 MAMMOGRAM 1971 PAP SMEAR 1971 HIV SCREENING 1986 HEPATITIS C SCREENING 03/07/1989 DTAP/TDAP/TD VACCINES (1 - Tdap) 1990 HEPATITIS B VACCINE (1 of 3 - 19+ 3-dose series) 1990 PNEUMOCOCCAL VACCINE 50+ (1 of 1 - PCV) 2021 ZOSTER VACCINE (1 of 2) 2021 COVID-19 VACCINE (1 - 2023-2 5 season) 2024 INFLUENZA VACCINE (#1) 2024 DEPRESSION SCREENING 05/19/2024 HIB VACCINE Aged Out No longer eligi ble based on patient's age to complete this topic HPV VACCINE Aged Out No longer eligi ble based on patient's age to complete this topic MENINGOCOCCAL (Group B) VACCINE Aged Out No longer eligible based on patient's age to complete this topic MENINGOCOCCAL VACCINE Aged Out No devin mindy eligible based on patient's age to complete this topic PNEUMOCOCCAL VACCINE Aged Out No long er eligible based on patient's age to complete this topic Care Teams Assistant Librarian Relationship Specialty Start Date End Date Marc Meredith DO [address] [place] [address] PCP - General 05/16/22
--- OUTSIDE RECORDS SUMMARY | 2024-07-14 00:38 | XMS_ITS | Patient Health Summary ---
Author Organization [facility] Address [address] [place] [address] Care Team Providers Care Coffee Shop Attendant Name Role Phone Marc Meredith DO Primary Care Provider [phone] Note from [facility],non-owned Affiliates and Associated Physician Practices is amultiple site organization consisting of ambulatory clinics and hospital sitesin [place], [place], [place] and [place]. This disclosure is being madepursuant to the Care Everywhere program and may not contain all information available regarding this patient. Last updated 18.[facility] Social History Tobacco Use Types Packs/Day Years Used Date Smoking Tobacco: Never Assessed Sex and Gender Information Value Date Recorded Sex Assigned at Not on file Gender Identity Not on file Sexual Orientation Not on file Care Teams Coffee Shop Attendant Relationship Specialty Start Date End Date Marc Meredith DO [address] [place] [address] PCP - General 05/16/22
--- OUTSIDE RECORDS SUMMARY | 2024-07-14 00:38 | XMS_ITS | Referral Summary ---
Author Organization [facility] Address [address] [place] [address] Care Team Providers Care Potato Chip Fryer Name Role Phone Marc Meredith DO Primary Care Provider [phone] Source Comments [facility],non-[facility] and Associated Physician Practices is amultiple site organization consisting of ambulatory clinics and hospital sitesin [place], [place], [place] and [place]. This disclosure is being madepursuant to the Care Everywhere program and may not contain all information available regarding this patient. Last updated 18.[facility] Social History Tobacco Use Types Packs/Day Years Used Date Smoking Tobacco: Never Assessed Sex and Gender Information Value Date Recorded Sex Assigned at Not on file Gender Identity Not on file Sexual Orientation Not on file Plan of Treatment Not on file Care Teams Potato Chip Fryer Relationship Specialty Start Date End Date Marc Meredith DO [address] [place] [address] PCP - General 05/16/22
--- NOTE | 2024-07-14 07:05 | P.OP_ITS ---
Procedure Note - Detailed Date of Procedure 07/14/24 Pre-op Diagnosis right trigger thumb Post-op Diagnosis Same Procedure Performed right thumb a1 mauricio release Surgeon Shayy Garcia MD Vacuum Metalizing Supervisor mecca srinivasan pa-c Anesthesia MAC Description of Procedure INFORMED CONSENT: The patient was seen and examined and marked in the pre-op area.? The patient signed the consent form. PROCEDURE IN DETAIL:The patient taken back to OR on the stretcher in supine position. Time out performed with anesthesia, surgeon and staff agreeing on patient's name site and surgery to be performed SCDs were placed on the lower extremities and inflated. A tourniquet was placed on {right} upper extremity and antibiotics given IV After anesthesia administered sedation I injected {3}cc 1%lido and 0.5% marcaine plain at the operative site The?{right upper extremity}?was prepped and draped in sterile fashion the??{right upper extremity} was? exsanguinated with Esmarch bandage and tourniquet inflated to 250mmHg I proceeded with making an oblique incision over the right thumb A1 mauricio just proximal to the MP joint flexion crease through skin and dermis with a 15 blade scalpel. Littler scissors were used to spread down through subcutaneous tissue to the mauricio. The mauricio was identified and initially incised with 15 blade scalpel. Littler scissors were used to spread above and below it proximally and distally completing the transection entirely. Ragnell retractor was used withdrawal the FPL tendon for inspection. The tendon was free of masses and synovitis and gliding smoothly in the sheath without crepitus or triggering. I irrigated with normal saline and closed with 4-0 chromic. A dressing of xeroform, 4x4, siomara, and an amanda bandage was applied after the tourniquet was let down noting the hand was warm and well perfused. The patient was then awaken from anesthesia and transferred to the recovery room in stable condition.? Complications - none EBL- 0cc Disposition - home in stable conditions Mecca srinivasan pa-c was essential for positioning, retraction, closure and myrna ssing placement [facility] Billing Surgery - Charge Forward: Surgery Billing ([phone] [id number] for mecca)
--- NOTE | 2024-07-14 07:05 | WPDHPUPDATE1 ---
History and Physical Update Update Date/Time: 07/14/24 07:05 Patient seen and examined in pre-operative holding area. No interval change in medical history or symptoms. Patient recalls previous discussion of benefits and alternatives to procedure. Continues to desire to proceed with right thumb a1 mauricio release. Reviewed procedure, post-op expectations and risks including but not limited to bleeding, infection, injury to tendon/nerve/vessel, decreased hand function, stiffness, RSD, no change or worsening of symptoms. I discussed the possible use of assistants and their participation in the case. Patient stated understanding and signed the consent form wishing to proceed.
[2024-07-14] MEDS: LACTATED RINGERS 1,000 ML 30 ML IV CONT (10:05)
[2024-07-14 10:20] VITALS: BP 123/92; PULSE 110; RESP 18; TEMP 36.2; O2SAT 97; BMI 40.4
[2024-07-14 10:21] LABS: BEDSIDEPREGUCG Negative (Negative)
--- NOTE | 2024-07-14 10:33 | WPDANESEPPF ---
Anes - Initial Pre Proc Eval Procedure: Operation Date: 07/14/24 11:45 Proposed Procedures p Right Trigger Thumb Release - Shayy Garcia MD Date/Time: 07/14/24 10:33 Surgeon: Shayy Garcia MD Pre Op Diagnosis: right trigger finger Patient Data Age: 54 Gender: F Height: 1.6 m Weight: 103.6 kg Last Vital Signs Temp 97.2 F L 07/14/24 10:20 Pulse 110 H 07/14/24 10:20 Resp 18 07/14/24 10:20 BP 123/92 H 07/14/24 10:20 Pulse Ox 97 07/14/24 10:20 O2 Del Method Room Air 07/14/24 10:20 Allergies Allergy/AdvReac Type Severity Reaction Status Date / Time No Known Allergies Allergy Verified 07/14/24 10:01 Home Medications ?Medication ?Instructions ?Recorded ?Confirmed ?Type venlafaxine 37.5 mg 37.5 mg PO DAILY 04/20/24 07/14/24 History tablet,extended release 24 hr tramadol 50 mg tablet 50 mg PO Q6H PRN pain #12 tabs 07/14/24 Rx Laboratory Tests 07/14/24 09:55 POC Urine HCG, Qual Negative (Negative) Patient hx anesthesia problems: none Family hx anesthesia problems: none Results Review: All pre-operative results and documents have been reviewed as part of the pre-operative evaluation. [facility] Past Medical History Medical History Colon cancer screening High blood pressure determined by examination Weakness Numbness Painful joint Heartburn Diabetes Acute vulvitis Body mass index [BMI]40.0-44.9, adult (03/04/17) Encounter for gynecological examination (general) (routine) with abnormal findings Encounter for screening for malignant neoplasm of cervix Unspecified hemorrhoids Screening mammogram, encounter for High cholesterol Family History Family History Father Diabetes mellitus Family history of elevated blood lipids Mother Family history of elevated blood lipids Family history of chronic obstructive pulmonary disease, Onset Age: 72 Family history of malignant neoplasm of urinary bladder Sibling Family history of malignant neoplasm of esophagus, Onset Age: 53 Social History Social History Smoking status: Never smoker Second hand tobacco smoke exposure: No Alcohol intake: never Substance use: never Substance use type: does not use Lack of Transportation: No Lack of Food: Never True Current Housing: I Have Housing Concerned About Future Housing: No Difficulty Paying Gas/Electric Bills: No Difficulty Paying for Meds: No Currently Unemployed: No Education: Bachelor's Degree Difficulty w/ Childcare or Family Care: No Living arrangements: with family Occupation/Education: occupation Gender identity (if verbalized by the patient): Female Sexual Orientation (if Verbalized by the Patient): Straight or Heterosexual Spiritual care concerns: No Anes - Eval Final PreProcedure Day of Procedure 07/14/24 10:33 Patient weight: morbidly obese Lungs: normal air movement Airway: Mallampati scale class II Neurological: alert and oriented Last oral intake: >/= 8 hours ASA classification: III Emergent: no Anesthetic plan: proceed Anesthesia type and monitoring: general GIVS and standard monitoring Results Review: All pre-operative results and documents have been reviewed as part of the pre-operative evaluation. BMI 40, preDM, borderline HTN/hyperlipidemia per records but not on meds. Informed Consent: The patient's anesthetic plan and its attendant risks and benefits were discussed with the patient/family/POA. Questions were solicited and answers provided to the satisfaction of the patient/family/POA.
[2024-07-14] MEDS: ceFAZolin 2 GM/D5W 50 ML 2 GM/50 ML BAG IVPB (11:11)
[2024-07-14] MEDS: LIDOCAINE 1% LOCAL INJ 20 ML VIAL 10 ML INFILTRATE (11:25)
[2024-07-14 11:28] VITALS: BP 130/79; PULSE 100; RESP 16
[2024-07-14 11:55] VITALS: BP 126/72; PULSE 87; RESP 16
== END 2024-07-14 12:26 | disposition home or self-care (01) ==
PROVIDERS: Visit Provider Plastic Surgery
PROC: (CPT 26055; principal; 2024-07-14 11:45)
DX: M65.311 Trigger thumb, right thumb (principal); E11.9 Type 2 diabetes mellitus without complications; I10 Essential (primary) hypertension; E78.00 Pure hypercholesterolemia, unspecified; E66.01 Morbid (severe) obesity due to excess calories; Z68.41 Body mass index [BMI] 40.0-44.9, adult; Z79.891 Long term (current) use of opiate analgesic; Z80.52 Family history of malignant neoplasm of bladder; Z80.0 Family history of malignant neoplasm of digestive organs
CPT/HCPCS: 26055; A9270; J0690; J2003; J2250; J2704; J3010; J7120

== ENCOUNTER 2025-02-10 14:17 | Outpatient (CLI) | payer OTHER, SELFPAY ==
--- NOTE | ~2025-02-10 | MM_ITS ---
EXAMINATION: MM screening breezy BI w magda HISTORY: Screening TECHNIQUE: Craniocaudal and mediolateral oblique 3-D tomosynthesis images were obtained and synthetic 2-D images were generated. CAD analysis was submitted and interpreted. COMPARISON: 12/18/2021 BREAST PARENCHYMAL COMPOSITION: There are scattered areas of fibroglandular density. FINDINGS: There is no evidence of suspicious mass, calcification, or architectural distortion to suggest malignancy. There has been no suspicious interval change. IMPRESSION: 1. No mammographic evidence of malignancy. Recommend routine screening mammography in one year. BI-RADS Category 2: Benign finding(s) Reviewed, dictated and finalized at location Q. IMPRESSION: 1. No mammographic evidence of malignancy. Recommend routine screening mammogra phy in one year. BI-RADS Category 2: Benign finding(s)
== END 2025-02-10 14:18 | disposition home or self-care (01) ==
PROVIDERS: PCP Student in an Organized Health Care Education/Training Program; Visit Provider Obstetrics & Gynecology
DX: Z12.31 Encounter for screening mammogram for malignant neoplasm of breast (principal)
CPT/HCPCS: 77063; 77067